=== PATIENT | female | born 1940 | race Caucasian/White ===

== ENCOUNTER 2018-11-11 11:41 | Emergency (ER) | payer MEDICARE, OTHER ==
[~2018-11-11] VITALS: Ht 162.6 cm; Wt 60.8 kg
[2018-11-11] MEDS ORDERED: VITAMIN D31000 UNIT PO (11:56)
[2018-11-11] MEDS ORDERED: SALMON OIL 1,01 EACH PO (11:56)
[2018-11-11] MEDS ORDERED: LUTEIN 15 MG S1 EACH PO (11:56)
[2018-11-11] MEDS ORDERED: VITAMIN C500 M5 PO (11:56)
[2018-11-11] MEDS ORDERED: MULTIVITAMINS1 EAC7 PO (11:57)
[2018-11-11] MEDS ORDERED: CURCUMIN1 GM MISC (11:57)
[2018-11-11] MEDS ORDERED: SUPER B COMPLE1 EACH PO (11:57)
[2018-11-11] MEDS ORDERED: CRANBERRY 6,001 EACH PO (11:58)
[2018-11-11] MEDS ORDERED: COZAAR50 MG PO (11:58)
[2018-11-11] MEDS ORDERED: ECHINACEA HERB380 MG PO (11:58)
[2018-11-11] MEDS ORDERED: ASPIRIN81 MG PO (11:59)
[2018-11-11] MEDS ORDERED: NORVASC5 MG PO (11:59)
[2018-11-11] MEDS ORDERED: PROBIOTIC1 EAC4 PO (11:59)
[2018-11-11] MEDS ORDERED: ALTOPREV40 MG PO (11:59)
--- NOTE | 2018-11-11 13:28 | EKG ---
[facility] [address] [facility] [place], [place] [address] Signed Normal sinus rhythm Right bundle branch block Abnormal ECG No previous ECGs available Confirmed by STEVE BRAMBILA MD ([id number]) on 11/11/2018 1:28:38 PM Electronically Signed By: STEVE BRAMBILA MD 11/11/18 1328 PATIENT NAME: YAIMA SWAIN Electrocardiogram DATE OF : 38 PHYSICIAN: STEVE BRAMBILA MD REPORT #: [id number] REPORT IS CONFIDENTIAL AND NOT TO BE RELEASED WITHOUT AUTHORIZATION
== END 2018-11-11 15:52 | disposition home or self-care (01) ==
LOC: ED 11:41
DX: R07.89 Other chest pain (principal); I10 Essential (primary) hypertension; J45.909 Unspecified asthma, uncomplicated; Z79.82 Long term (current) use of aspirin; Z79.899 Other long term (current) drug therapy
CPT/HCPCS: 71045; 80053; 84484; 85025; 93005; 93010; 99285-25

== ENCOUNTER 2022-06-21 06:00 | Day surgery (SDC) | payer MEDICARE, OTHER ==
[~2022-06-21] VITALS: Ht 162.6 cm; Wt 60.0 kg
[~2022-06-21 06:00] MED LIST: ALTOPREV40 MG PO; ASPIRIN81 MG PO; COZAAR50 MG PO; CRANBERRY 6,001 EACH PO; CURCUMIN1 GM MISC; ECHINACEA HERB380 MG PO; LUTEIN 15 MG S1 EACH PO; MULTIVITAMINS1 EAC8 PO; NORVASC5 MG PO; PROBIOTIC1 EAC4 PO; SALMON OIL 1,01 EACH PO; SUPER B COMPLE1 EACH PO; VITAMIN C500 M5 PO; VITAMIN D31000 UNIT PO
--- NOTE | 2022-06-21 07:53 | NUR ---
VISTED WITH PT PRIOR TO PROCEDURE. PT SHARED THAT HER RIDE WOULD COME BACK WHEN THE PROCEDURE WAS DONE. PT EXPRESSED BEING NERVOUS AND HOPEFUL THAT PROCEDURE WOULD SHOW NOTHING TO WORRY ABOUT. PT WAS TALKATIVE AND THE VISIT WAS LONG. PRAYED WITH PT.
--- NOTE | 2022-06-21 09:51 | NUR ---
06/21/22 0951 Sarah Amaya 0909 PT ARRIVED IN PACU AWAKE WITH NO C/O'S. 15 FLU VACCINE GIVEN IN R ARM PER PT REQUEST. 919 DR AT BEDSIDE. ALL QUESTIONS ANSWERED. 929 SITTING AT SIDE OF BED GETTING DRESSED. 41 DC INSTRUCTIONS GIVEN. LEFT VIA W/C.
--- NOTE | 2022-06-21 12:26 | OR ---
[facility] [address] [place], [place] [address] Signed DATE OF OPERATION: 06/21/2022 SURGEON: Hellen Cheung MD PREOPERATIVE DIAGNOSES: 1. Postmenopausal bleeding. 2. Uterovaginal prolapse. POSTOPERATIVE DIAGNOSES: 1. Postmenopausal bleeding. 2. Uterovaginal prolapse. 3. Cervical stenosis. PROCEDURE: Dilation and curettage. ANESTHESIA: MAC. ESTIMATED BLOOD LOSS: Minimal. DRAINS: None. INDICATIONS AND FINDINGS: The patient is an 82-year-old female, who has had recent abnormal bleeding. Ultrasound showed a slightly thickened endometrium with some fluid. At the time of surgery, her cervix presented at the hymen. Her uterus was small. The cervix was stenotic. No pelvic masses were appreciated. Her cervix could not be dilated beyond the #5 dilator, so D and C with a small curette was done and hysteroscopy was not done. DESCRIPTION OF PROCEDURE: The patient was prepped and draped in the dorsal lithotomy position. A weighted speculum was placed and the anterior lip of the cervix was grasped with a single-tooth tenaculum. The endocervical canal was dilated with some difficulty to a #5 dilator. However, a #6 could not be introduced. Uterus sounded to approximately 6 cm. A small curette was introduced and sharp curettage was done with a small amount of tissue found. There was some tearing of the anterior cervix when the tenaculum was removed and a suture of 0-chromic was placed to repair the rent. All sponge and needle counts were Electronically Signed By: HELLEN CHEUNG MD 06/21/22 1226 PATIENT NAME: YAIMA SWAIN OPERATIVE REPORT DATE OF : 38 REPORT #: [id number] PHYSICIAN: HELLEN CHEUNG MD PCP: ANDREA FIGUEROA MD REPORT IS CONFIDENTIAL AND NOT TO BE RELEASED WITHOUT AUTHORIZATION [facility] [address] [place] [id number] Signed correct. The instruments were removed. The patient was taken to the recovery room in good condition. Hellen Cheung MD PJW/MODL /[id number] cc: Dr. Andrea Figueroa Copies: ~ Electronically Signed By: HELLEN CHEUNG MD 06/21/22 1226 PATIENT NAME: YAIMA SWAIN OPERATIVE REPORT DATE OF : 38 REPORT #: [id number] PHYSICIAN: HELLEN CHEUNG MD PCP: ANDREA FIGUEROA MD REPORT IS CONFIDENTIAL AND NOT TO BE RELEASED WITHOUT AUTHORIZATION
--- NOTE | 2022-06-22 12:47 | EKG ---
[facility] [address] [facility] [place] [address] Signed Normal sinus rhythm Right bundle branch block Left posterior fascicular block Bifascicular block Abnormal ECG When compared with ECG of 11-NOV-2018 11:47, No significant change was found Confirmed by REGGIE ORR MD ([id number]) on 06/22/2022 12:46:53 PM Electronically Signed By: REGGIE ORR MD 06/22/22 1247 PATIENT NAME: YAIMA SWAIN Electrocardiogram DATE OF : 38 PHYSICIAN: REGGIE ORR MD REPORT #: [id number] REPORT IS CONFIDENTIAL AND NOT TO BE RELEASED WITHOUT AUTHORIZATION
--- NOTE | 2022-06-23 15:42 | PATH ---
[facility] [address] [facility] [place], [place] [address] Signed SPECIMEN(S): A ENDOMETRIAL CURETTINGS SPECIMEN SOURCE: A. ENDOMETRIAL CURETTINGS CLINICAL HISTORY: Postmenopausal bleeding FINAL PATHOLOGIC DIAGNOSIS: Endometrial curettings: - Benign atrophic superficial glandular epithelium consistent with lower uterine segment / endometrial epithelium. - Fragments of benign endocervical and ectocervical epithelium. - Negative for atypical features or malignancy. - See comment. COMMENT: The endometrial sampling is scant and may not be financial sales representative of the endometrium. Clinical correlation is requested and if concern persists, additional sampling may be considered. JVR:graham:C2NR MICROSCOPIC EXAMINATION: Histologic sections of all submitted blocks are examined by light microscopy. These findings, together with the gross examination, support the pathologic diagnosis. GROSS DESCRIPTION: The specimen, labeled "Ai Raymond," and designated on the requisition "[facility]," is received in formalin and consists of a 1.7 x 1.5 x 0.3 cm aggregate of red-pink soft tissue. The specimen is entirely submitted in cassette (A1). FB (under the direct supervision of a pathologist) The Gross Description was prepared using a voice recognition system. The report was reviewed for accuracy; however, sound-alike word errors, addition and/or deletions may occur. If there is any question about this report, please contact Client Services. PERFORMING LABORATORY: The technical component was performed by [facility], [address] [place] [id number] (CLIA# [id number]). Professional interpretation was PATIENT NAME: AI RAYMOND PATHOLOGY DATE OF : 38 REPORT #: [id number] PHYSICIAN: JOSIE PATHOLOGY PCP: LEI FIGUEROA MD REPORT IS CONFIDENTIAL AND NOT TO BE RELEASED WITHOUT AUTHORIZATION [address] [place], [place] [address] Signed performed by [facility] [address] [address] (CLIA#: [id number]). Diagnostician: Hubert Lopez MD Pathologist Electronically Signed 06/23/2022 Copies: ~ PATIENT NAME: AI RAYMOND PATHOLOGY DATE OF : 38 REPORT #: [id number] PHYSICIAN: JOSIE PATHOLOGY PCP: LEI FIGUEROA MD REPORT IS CONFIDENTIAL AND NOT TO BE RELEASED WITHOUT AUTHORIZATION
== END 2022-06-21 09:41 | disposition home or self-care (01) ==
LOC: DS 06:00
PROVIDERS: ATTEND Obstetrics & Gynecology
PROC: 0UDB7ZZ Extraction of Endometrium, Via Natural or Artificial Opening (ICD-10-PCS; principal; 2022-06-21 08:35)
DX: N95.0 Postmenopausal bleeding (principal); N81.4 Uterovaginal prolapse, unspecified; N88.2 Stricture and stenosis of cervix uteri; J45.909 Unspecified asthma, uncomplicated; E78.00 Pure hypercholesterolemia, unspecified; M81.0 Age-related osteoporosis without current pathological fracture; I10 Essential (primary) hypertension; Z79.82 Long term (current) use of aspirin; Z88.1 Allergy status to other antibiotic agents; Z23 Encounter for immunization
CPT/HCPCS: 36415; 80053; 85025; 87502; 93005; 93010; J2704; J7121; U0003

== ENCOUNTER 2024-01-03 11:46 | Inpatient (IN) | payer MEDICARE, OTHER ==
[~2024-01-03] VITALS: Ht 162.6 cm; Wt 61.4 kg
--- NOTE | ~2024-01-03 | OR ---
[facility] [address] [place], [place] [address] Draft DATE OF OPERATION: 02/20/2024 SURGEON: Hellen Cheung MD ICE PULLER: David Desai MD PREOPERATIVE DIAGNOSIS: Uterovaginal prolapse. POSTOPERATIVE DIAGNOSIS: Uterovaginal prolapse. PROCEDURES: 1. Total vaginal hysterectomy. 2. Colpocleisis. 3. Cystoscopy, cannulation of the left ureter. ANESTHESIA: Spinal with IV sedation. ESTIMATED BLOOD LOSS: 50 mL. DRAINS: Sousa catheter. PACKS: None. INDICATIONS AND FINDINGS: The patient is an 83-year-old female who has had ongoing issues with uterovaginal prolapse. She failed a pessary trial. She delayed surgery as she was caring for her disabled , but now that he has passed, she is ready to undergo correction. At the time of surgery, the cervix presented within 2 cm of the introitus. The uterus itself was small, though there was a small cervical fibroid on the patient's right. The tubes and ovaries were palpably normal. DESCRIPTION OF PROCEDURE: The patient was prepped and draped in the dorsal lithotomy position. A weighted PATIENT NAME: YAIMA SWAIN OPERATIVE REPORT DATE OF : 38 REPORT #: [id number] PHYSICIAN: HELLEN CHEUNG MD PCP: ROCKY MILLER MD REPORT IS CONFIDENTIAL AND NOT TO BE RELEASED WITHOUT AUTHORIZATION [facility] [address] [place], [place] [address] Draft speculum was placed. The anterior and posterior lips of the cervix were visualized and grasped with a single-tooth tenaculum. The cervix was injected with 10 mL of 1% lidocaine with 1:200;000 epi. The posterior cul-de-sac was then entered sharply. The swan-neck speculum was then placed in the posterior cul-de-sac. The uterosacral ligaments were grasped bilaterally and divided and suture ligated with 0 Vicryl. The vaginal mucosa was then circumferentially incised with the knife. Sharp dissection was used bringing the vaginal mucosa up off of the cervix. At this point, the anterior cul-de-sac was entered. Following this, the remaining pedicles on each side were grasped with curved Z clamps and divided. This was followed by free tie of 0 Vicryl followed by suture ligature of 0 Vicryl on each side. The cuff was examined and there was no evidence of any ongoing bleeding. The peritoneum was identified and the peritoneum was closed with a running suture of 3-0 Vicryl. Following this, the anterior wall of the vagina was grasped in the midline with Allis clamps. This was begun at the bladder neck and down to the cuff. The urethral area was left in place. An incision was made with a knife in the midline and the vaginal mucosa was then undermined bilaterally. This was done as far as possible. The vaginal mucosa was then excised as much as possible. Interrupted sutures of 0 Vicryl were used to plicate what remained of the pubovesical fascia in the midline. Bleeding points were controlled with cautery. Attention was then directed posteriorly. A triangle of tissue was removed from the perineal body and the vaginal mucosa was undermined and incised in the midline to the apex of the vagina. The vaginal mucosa was with a combination of blunt and sharp dissection bilaterally. Care was taken to leave an approximately 1.5 cm area just within the introitus. Following this, bleeding points were controlled with cautery as well as superficial sutures of 2-0 chromic. FloSeal was injected around each of the upper angles near the cuff. Pursestring sutures of 0 Vicryl were used to serially reduce the central defect and bring the anterior and posterior rios together. 2-0 Vicryl was used to then bring the vaginal mucosa together on each side with a running suture of the 2-0 Vicryl. The remaining anterior and posterior vaginal mucosa at the distal part of the vagina was also closed transversely. Before final closure, the vaginal canal was packed with Gel-Foam. The posterior fourchette was then recreated with running suture of 2-0 Vicryl. A crown suture was placed on the perineal body quite high in order to improve the perineal strength. The perineum was closed with subcuticular sutures of 2-0 Vicryl. Inspection of the vault showed good reduction of the vaginal canal. There was a short tunnel on the patient's left. Following this, the cystoscopy was done. The 70-degree scope was used. The patient's right ureter was seen to freely express clear urine. There was no evidence of any other bladder injury. The left ureter, however, after prolonged observation did not have any urine. Because of this, the scope was traded out for the 30-degree scope in the left ureter, was then easily cannulated with a 4 mm whistle-tip. A small amount of clear urine was then seen after removal of the whistle-tip cannula. There was absolutely no resistance on placement. Following this, the cystoscopy was complete and the Sousa catheter replaced. All sponge and needle counts were correct. She tolerated the procedure well and was PATIENT NAME: YAIMA SWAIN OPERATIVE REPORT DATE OF : 38 REPORT #: [id number] PHYSICIAN: HELLEN CHEUNG MD PCP: ROCKY MILLER MD REPORT IS CONFIDENTIAL AND NOT TO BE RELEASED WITHOUT AUTHORIZATION [address] [place] [address] Draft taken to the recovery room in good condition. MD SIMON Fisher/TAMANNA /[id number] Copies: ~ PATIENT NAME: YAIMA SWAIN OPERATIVE REPORT DATE OF : 38 REPORT #: [id number] PHYSICIAN: HELLEN CHEUNG MD PCP: ROCKY MILLER MD REPORT IS CONFIDENTIAL AND NOT TO BE RELEASED WITHOUT AUTHORIZATION
[~2024-01-03 11:46] MED LIST changes: -CRANBERRY 6,001 EACH PO; +CRANBERRY500 M3 PO; -SALMON OIL 1,01 EACH PO; +SV SALMON OIL1 EACH PO
[2024-02-11] MEDS ORDERED: DILTIAZEM ER120 M2 PO (15:27)
[2024-02-11] MEDS ORDERED: HYDROCHLOROTH12.5 M1 PO (15:28)
[2024-02-11] MEDS ORDERED: FLUTICASONE P IH (15:28)
[2024-02-11] MEDS ORDERED: FOSAMAX70 MG PO (15:29)
[2024-02-11] MEDS ORDERED: VENTOLIN HFA18 GM INH (15:29)
[2024-02-11 15:37] VITALS: BP 153/72
[2024-02-19] MEDS ORDERED: AMLODIPINE BESY10 MG PO (16:58)
[2024-02-19] MEDS ORDERED: CITALOPRAM HBR20 MG PO (16:59)
[2024-02-19] MEDS ORDERED: ZINC30 MG PO (17:00)
[2024-02-19] MEDS ORDERED: MONTELUKAST SOD10 MG PO (17:00)
[2024-02-19] MEDS ORDERED: VITAMIN D350 MC3 PO (17:00)
[2024-02-19] MEDS ORDERED: CALCIUM 600-VI1 EA10 PO (17:01)
[2024-02-20] VITALS (9 sets, daily range): BP systolic 120–142; BP diastolic 46–65
[2024-02-20] MEDS ORDERED: LACTATED RINGER'S 1,000 ML IV SCH ×2 (05:00→10:30)
[2024-02-20] MEDS ORDERED: BUPIVACAINE 0.75% IN DEXTROSE 2 ML AMP ONE (06:58)
[2024-02-20] MEDS ORDERED: MORPHINE SULFATE 1 MG/ML VIAL ONE (06:58)
[2024-02-20] MEDS ORDERED: fentaNYL citrate 100 MCG/2 ML VIAL ONE (06:58)
[2024-02-20] MEDS ORDERED: LIDOCAINE 1% W/ EPI 1:100,000 20 ML MDV ONE (06:59)
[2024-02-20] MEDS ORDERED: CEFAZOLIN SODIUM 2 GM/20 ML SYR IV SCH (07:00)
[2024-02-20] MEDS ORDERED: HEParin SOD (PORCINE) 5,000 UNIT/0.5 ML SYR SUB-Q SCH ×2 (07:00→21:00)
[2024-02-20] MEDS ORDERED: LIDOCAINE HCL 1% 5 ML SDV INJ ONE (07:00)
[2024-02-20] MEDS ORDERED: FAMOTIDINE 20 MG/ 2 ML VIAL IV SCH (07:00)
[2024-02-20] MEDS ORDERED: IBLOOD GLUCOSE TEST STRIP 1 EA TEST VI PRN ×2 (07:00→09:30)
[2024-02-20] MEDS ORDERED: propofoL 200 MG/20 ML VIAL ONE ×3 (07:01→09:09)
[2024-02-20] MEDS ORDERED: DEXAMETHASONE SOD PHOS 4 MG/ML VIAL ONE (07:01)
[2024-02-20] MEDS ORDERED: PHENYLEPHRINE HCL 10 MG/ML VIAL ONE (07:06)
[2024-02-20] MEDS ORDERED: LIDOCAINE HCL 2% 5 ML SDV ONE (07:12)
[2024-02-20] MEDS ORDERED: ACETAMINOPHEN 1,000 MG/100 ML VIAL ONE (07:37)
[2024-02-20] MEDS ORDERED: fentaNYL citrate 50 MCG/ML SDV IV PRN (09:30)
[2024-02-20] MEDS ORDERED: ondansetron HCL 4 MG/2 ML VIAL IV PRN ×2 (09:30→10:30)
[2024-02-20] MEDS ORDERED: NALOXONE HCL 0.4 MG SYR IV PRN ×2 (09:30→10:30)
[2024-02-20] MEDS ORDERED: FLUORESCEIN SODIUM 500 MG/5 ML ML ONE (09:42)
[2024-02-20] MEDS ORDERED: MAGNESIUM HYDROXIDE/AL HYDROX 30 ML CUP PO PRN (10:30)
[2024-02-20] MEDS ORDERED: METOCLOPRAMIDE HCL 10 MG/2 ML SDV IV PRN (10:30)
[2024-02-20] MEDS ORDERED: SIMETHICONE 125 MG TABLET CHEWABLE PO PRN (10:30)
[2024-02-20] MEDS ORDERED: FAMOTIDINE 20 MG TAB PO PRN (10:30)
[2024-02-20] MEDS ORDERED: ondansetron HCL 4 MG TAB PO PRN (10:30)
[2024-02-20] MEDS ORDERED: diphenhydrAMINE HCL 50 MG/ML VIAL IV PRN (10:30)
[2024-02-20] MEDS ORDERED: LIDOCAINE 2% VISCOUS 6 ML SYR TOP ONE (10:30)
[2024-02-20] MEDS ORDERED: bisacodyL 10 MG SUPP PR PRN (10:30)
[2024-02-20] MEDS ORDERED: PROCHLORPERAZINE EDISYLATE 10 MG/2 ML VIAL IV PRN (10:30)
--- NOTE | 2024-02-20 10:39 | NUR ---
02/20/24 Naun9 June Mireles 1034-PATIENT ARRIVED TO PACU ON 6L MASK RR EVEN. PATIENT REACTIVE TO VERBAL STIMULI WILL OPENS EYES MOVES HANDS. REMAINS VERY DROWSY. SR. IVF INFUSING. SVETLANA PAD CDI. STEWART CATHETER DRAINING YELLOW URINE. PATIENT DOZES TO SLEEP
[2024-02-20] MEDS ORDERED: ACETAMINOPHEN 500 MG TAB PO SCH (10:45)
[2024-02-20] MEDS ORDERED: MECLIZINE HCL 12.5 MG TAB PO PRN (10:45)
--- NOTE | 2024-02-20 11:43 | NUR ---
PT ARRIVES TO UNIT AT 1130 VIA GURNEY, ESCORTED BY NITHYA Esparza RN. VSS. PT AWAKE AND ALERT. 3L O2 IN PLACE VIA NC. STEWART CATHETER IN PLACE DRAINS CLEAR LIGHT YELLOW URINE. PERIPAD IN PLACE WITH MODERATE SEROSANGUINEOUS DRAINAGE. NO PACKING PRESENT. PT DENIES PAIN OR NAUSEA AT THIS TIME. REPORTS TINGLING IN THE LEFT FINGERS AND IN BILATERAL TOES. GROSS MOTOR MOVEMETN INTACT, STRENGHT TO BUE AND BLE NORMAL AND EQUAL. LUNGS CLEAR, BOWEL TONES ACTIVE X4 QUADRANTS, PT DENIES ABD PAIN OR TENDERNESS. ABDOMEN SOFT AND FLAT. WARM BLANKET PROVIDED. PT ORIENTED TO ROOM AND CALL LIGHT. CALL LIGHT IN REACH. SON HANY, VISITS WITH PT THEN LEAVES ROOM. PT BELONGINGS WITH SONHANY.
--- NOTE | 2024-02-20 12:20 | NUR ---
PT ABLE TO SIT UP ON BEDSIDE AND STAND, PT ABLE TO MAINTAIN STANDING POSITION AND DON BRIEF. PT TOLERATES THIS WELL WITH SBA. PT BACK TO BED, SCDS ON TO BLE.
--- NOTE | 2024-02-20 13:09 | NUR ---
PATIENT IN BED AT THIS TIME. CALL LIGHT WITHIN REACH, NO FURTHER NEEDS AT THIS TIME.
--- NOTE | 2024-02-20 13:27 | NUR ---
PT ATE LUNCH, DENIES NAUSEA, DENIES PAIN. MODERATE AMOUNT OF RED DRAINAGE NOTED IN PERIPAD. NO REQUESTS AT THIS TIME.
--- NOTE | 2024-02-20 13:37 | NUR ---
WENT IN TO TAKE PC VITALS, AND TO EMPTY HER STEWART.PT WANTED A REFILL OF HER WATER AND DIDNT NEED ANYTHING ELSE FROM ME. CALL LIGHT IS WITHIN REACH.
[2024-02-20] MEDS ORDERED: IBUPROFEN 800 MG TAB PO SCH (14:00)
--- NOTE | 2024-02-20 14:38 | NUR ---
VS ASSESSED WNL. PT DENIES NEEDS ATT. GIVEN SCHEDULED MEDS.
--- NOTE | 2024-02-20 15:38 | NUR ---
NO NEW PERIPAD DRAINAGE NOTED AT THIS TIME.
--- NOTE | 2024-02-20 15:45 | NUR ---
UR CLINICAL REVIEW: 2 MN FOR VERSALUS-MEETS CRITERIA FOR INPATIENT STAY MEDICARE INPT 02/20/24 @ 1038 ORDER MATCHES REG NO PA REQUIRED PER MEDICARE GUIDELINES. DISCHARGE TO HOME WHEN STABLE.
--- NOTE | 2024-02-20 19:10 | NUR ---
pt RESTING IN THE BED. BOARD UPDATED. pt DENIES ANY OTHER NEEDS AT THIS TIME CALL LIGHT WITHIN REACH.
[2024-02-20] MEDS ORDERED: dilTIAZem HCL 120 MG CAPCR PO SCH (21:00)
[2024-02-20] MEDS ORDERED: MINERAL OIL/CHONDRUS 30 ML BTL PO SCH (21:00)
[2024-02-20] MEDS ORDERED: SENNOSIDES/DOCUSATE 1 EA TAB PO SCH (21:00)
--- NOTE | 2024-02-20 21:05 | NUR ---
ASSESSMENT AND VITAL SIGNS DONE. NEW SVETLANA PAD AND BREIF ON pt. MODERATE AMMOUNT OF BLOOD ON PAD. pt TITRATED DOWN TO 1LNC. pt SATTING AT 94%. STEWART CATH CARE DONE. SBA FOR LINE TUBE MANAGEMENT. SCHEDULED MEDICATION ADMINISTERED, SEE MAR. SCDS ON. IVF INFUSING PER ORDER, SEE MAR. pt DENIES ANY OTHER NEEDS AT THIS TIME. CALL LIGHT WITHIN REACH.
--- NOTE | 2024-02-21 00:13 | NUR ---
pt RESTING IN THE BED WITH EYES CLOSED. RR EVEN AND UNLABORED. CALL LIGHT WITHIN REACH.
[2024-02-21 01:24] VITALS: BP 113/45
--- NOTE | 2024-02-21 01:30 | NUR ---
ASSESSMENT AND VITAL SIGNS DONE. pt TRIALED ON RA AND DESATTED DOWN TO 86% O2. pt PUT BACK 1L NC. pt NOW SATTING AT 91% ON 1LNC. WATER REFRESHED. pt DENIES ANY OTHER NEEDS AT THIS TIME. CALL LIGHT WITHIN REACH.
--- NOTE | 2024-02-21 04:03 | NUR ---
pt RESTING IN BED. pt REQUESTED PILLOWS UNDER LEGS. pt DENIES ANY OTHER NEEDS AT THIS TIME. CALL LIGHT WITHIN REACH.
[2024-02-21 04:40] VITALS: BP 109/83
--- NOTE | 2024-02-21 05:00 | NUR ---
VITAL SIGNS DONE. pt SVETLANA PAD CHANGED. SCANT AMOUNT OF BLOOD PAD. pt DENIES PAIN AT THIS TIME. NO OTHER NEEDS AT THIS TIME. CALL LIGHT WITHIN REACH.
[2024-02-21 05:32] LABS: HEMATOCRIT 31.7 % (35.0-50.0); HEMOGLOBIN 10.6 g/dL (12.0-18.0); MCHC 33.4 g/dl (30-36); MCV 86.8 fl (81-99); RBC 3.65 M/ul (4.3-5.7)
[2024-02-21 05:45] LABS: ANION GAP 12.7 (7-21); BUN/CREATININE RATIO 20.54 (6.0-28.6); CALCIUM 8.2 mg/dL (8.5-10.1); CREATININE, SERUM 0.73 mg/dL (0.55-1.02); POTASSIUM 3.7 mmol/L (3.5-5.1)
--- NOTE | 2024-02-21 06:50 | NUR ---
pt SL PER MD ORDER. pt UP TO THE BR, SBA. pt DENIES ANY NEED AT THIS TIME. pt HAVING A BM. pt BACK TO BED. CPOX ON. SCDS ON.
--- NOTE | 2024-02-21 07:05 | NUR ---
REPORT RECIEVED FROM MATILDE HIDALGO. PT SEMI-FOWLERS IN BED WITH EYES CLOSED, RR EVEN AND UNLABORED. NO NEEDS IDENTIFIED AT THIS TIME. CALL LIGHT IN REACH.
[2024-02-21] MEDS ORDERED: HYDROCHLOROTH12.5 MG PO (07:59)
[2024-02-21] MEDS ORDERED: CITALOPRAM HBR20 MG PO (08:43)
[2024-02-21] MEDS ORDERED: LOSARTAN POTAS100 MG PO (08:45)
[2024-02-21] MEDS ORDERED: LOVASTATIN40 MG PO (08:46)
[2024-02-21] MEDS ORDERED: FLUTICASONE PRO16 GM NAS (08:47)
[2024-02-21] MEDS ORDERED: AMLODIPINE BESYLATE 10 MG TAB PO SCH (09:00)
[2024-02-21] MEDS ORDERED: LOSARTAN POTASSIUM 100 MG TAB PO SCH (09:00)
--- NOTE | 2024-02-21 09:23 | NUR ---
Received phone call from Dr. Cheung who wanted to confirm that this patient's parada needs to come out if it hasn't already been taken out. Advised charge nurse Palak, who will check with Ijeoma.
--- NOTE | 2024-02-21 09:30 | NUR ---
IN TO ADMINSITER MEDICATIONS, SEE MAR. PT TAKES PO MEDICAITONS WITH NO ISSUES. STEWART REMOVED AT 0935. DR. GARRETT IN ROOM. PT EDUCATED ON POST VOID RESIDUALS. ASSESSMENT COMPLETE. LUNG SOUNDS CLEAR. BOWEL TONES ACTIVE. ABD SOFT, NON-TENDER WITH PALPATION. PT DENIES PAIN AT THIS TIME. PT STATES "JUST A LITTLE CRAMPY FEELING, BUT I THINK IT IS GAS." SMALL AMOUT OF BLOOD NOTED TO SVETLANA-PAD. PEDAL PULSES PALPABLE, STRONG. PT DENIES ANY OTHER NEEDS AT THIS TIME. CALL LIGHT IN REACH. SON IN ROOM.
[2024-02-21 09:36] VITALS: BP 130/50
[2024-02-21] MEDS ORDERED: FLUTICASONE-SA1 EAC3 INH (10:59)
--- NOTE | 2024-02-21 11:00 | NUR ---
MED REC COMPLETE
--- NOTE | 2024-02-21 11:45 | NUR ---
Spoke with Ai. She denies any needs. Completed CM assessment and pt is active and cares for herself. Her son will be staying with her until she sees Dr. Cheung and then she plans on going home with him to [place]. She does not use any DME. Home when cleared medically by Dr. Cheung.
--- NOTE | 2024-02-21 12:40 | NUR ---
IN TO ANSWER CALL LIGHT. PT REPORTING TOILETING NEEDS. SBA FROM BED TO RESTROOM. SMALL AMOUNT OF BLOOD NOTED TO SVETLANA-PAD. NEW SVETLANA-PAD PLACED. VOID NOTED OF 400ML. BLADDERSCAN OF 12ML NOTED. PT IN BED DENIES ANY OTHER NEEDS AT THIS TIME. CALL LIGHT IN REACH.
--- NOTE | 2024-02-21 13:44 | NUR ---
IN TO ADMINISTER MEDICATION, SEE MAR. PT TAKES PO MEDICATION WITH NO ISSUES. ASSESSMENT COMPLETE. PT DENIES PAIN AT THIS TIME. PT REPORTING PASSING FLATUS. SCANT AMOUNT OF BLOOD NOTED TO SVETLANA-PAD. BOWEL TONES ACTIVE. PT REPORTS SOME ABD TENDERNESS WITH PALPATION TO UPPER ABD. PT DENIES ANY OTHER NEEDS AT THIS TIME. CALL LIGHT IN REACH.
--- NOTE | 2024-02-21 13:59 | NUR ---
THIS RN CALLED DR. GARRETT TO UPDATE ON PTs VOIDING TRIAL. DR. GARRETT WOULD LIKE ONE MORE VOID ATTEMPT. NO NEW ORDERS.
[2024-02-21 14:04] VITALS: BP 123/47
--- NOTE | 2024-02-21 14:52 | NUR ---
IN TO ROUND ON PT. PT SITTING UP IN BED AND STATES "I COULD NOT HOLD IT I HAD TO GO, BUT I LEFT IT FOR YOU." VOID OF 600ML NOTED AND BLADDER SCAN OF 49ML NOTED. PT DENIES ANY OTHER NEEDS AT THIS TIME. CALL LIGHT IN REACH. PTs SON IN ROOM. THIS RN ATTEMPTED TO CALL DR. GARRETT TO UPDATE. DR. GARRETT NOT AVAILABLE AT THIS TIME.
--- NOTE | 2024-02-21 16:13 | NUR ---
IN TO ROUND ON PT. PT SITTING UP IN BED AND RESPONDS WHEN ADDRESSED. PT REPORTING PAIN 1/10 IN SVETLANA-AREA, PT STATES "I COUGHED." ASKED PT IF PT HAS ANY TOILETING NEEDS AND PT STATES "I WENT A WHILE AGO, BUT IT WAS MOSTLY NUMBER 2." THIS RN INFORMED PT THAT WE STILL NEED TO MONITOR POST VOID RESIDUAL, SO TO PLEASE CONTINUE CALLING AFTER USING RESTROOM. PT VERBALIZES UNDERSTANDING. PT DENIES ANY OTHER NEEDS AT THIS TIME. CALL LIGHT IN REACH. SON IN ROOM.
--- NOTE | 2024-02-21 16:40 | NUR ---
IN WITH DR. GARRETT. DR. GARRETT AND PT DISCUSS DC. PT AGREEABLE. 1645 IV REMOVED WNL. PT DENIES ANY ASSISTANCE WITH GETTING DRESSED. PT DENIES ANY OTHER NEEDS AT THIS TIME. CALL LIGHT IN REACH.
[2024-02-21] MEDS ORDERED: IBU800 MG PO (16:56)
[2024-02-21] MEDS ORDERED: TYLENOL EXTRA500 MG PO (16:58)
[2024-02-21] MEDS ORDERED: SENNA-S 8.6-501 EACH PO (17:00)
[2024-02-21] MEDS ORDERED: MINERAL OIL PO (17:10)
--- NOTE | 2024-02-21 17:48 | NUR ---
IN TO GO OVER DC PAPERWORK. VERBAL AND WRITTEN INSTRUCTIONS PROVIDED. PT VERBALIZES UNDERSTANDING. QUESTIONS ANSWERED. PTs SON IN ROOM AND VERBALIZES UNDERSTANDING OF DC INSTRUCTIONS. PT BELONGINGS RETURNED. PT DENIES ANY OTHER NEEDS FROM THIS RN.
[2024-02-21 17:57] VITALS: BP 132/50
--- NOTE | 2024-02-25 16:36 | PATH ---
[facility] [address] [place], [place] [address] Signed SPECIMEN(S): A CERVIX AND UTERUS SPECIMEN SOURCE: A. CERVIX AND UTERUS CLINICAL HISTORY: Uterovaginal prolapse. FINAL PATHOLOGIC DIAGNOSIS: Uterus and cervix: - Cervix: Benign squamous atrophy. No dysplasia identified. - Endometrium: Inactive postmenopausal endometrium. No hyperplasia identified. - Myometrium: Multiple benign leiomyomas. [facility] MICROSCOPIC EXAMINATION: Histologic sections of all submitted blocks are examined by light microscopy. These findings, together with the gross examination, support the pathologic diagnosis. GROSS DESCRIPTION: The specimen, labeled and designated "Renetta Raymond, " and designated on the requisition "uterus and cervix," is received in formalin and consists of 28 gram uterus and cervix, which is 2.8 x 2.2 x 7.3 cm (cornu-cornu x anterior-posterior x fundus-ectocervix). The serosal surface is pale pink and smooth with two subserosal nodules that measure 0.3 and 1.0 cm in greatest dimension and one defect that is 2.4 cm involving the lower uterine segment and contains purple suture material. The ectocervical mucosa is pale pink and wrinkled. Serial sectioning of the cervix fails to demonstrate any gross abnormalities. The triangular endometrial cavity is lined by a pink smooth and focally congested endometrium that has an average thickness of 0.1 cm. Sectioning through the uterus reveals a pink moderately trabeculated myometrium with three white-ortiz well-circumscribed intramural nodules that measure up to 1.4 cm in greatest dimension. The subserosal and intramural nodules have a white whorled cut surface. Deicer Tester sections are submitted in three cassettes. Cassette Summary: (A1) cervix PATIENT NAME: YAIMA RAYMOND PATHOLOGY DATE OF : 38 REPORT #: [id number] PHYSICIAN: [facility] PCP: ROCKY MILLER MD REPORT IS CONFIDENTIAL AND NOT TO BE RELEASED WITHOUT AUTHORIZATION [facility] [address] [place], [place] [address] Signed (A2) uterine wall (A3) subserosal and intramural nodules add block FB (under the direct supervision of a pathologist) The Gross Description was prepared using a voice recognition system. The report was reviewed for accuracy; however, sound-alike word errors, addition and/or deletions may occur. If there is any question about this report, please contact Client Services. ADDITIONAL NOTES: Immunohistochemical and/or in situ hybridization studies if performed in this case included appropriate positive controls that reacted as expected. This test was developed and its performance characteristics determined by [facility]. It has not been cleared or approved by the U.S. Food and Drug Administration. The FDA has determined that such clearance or approval is not necessary. This test is used for clinical purposes. It should not be regarded as investigational or for research. [facility] is certified under the Clinical Laboratory Improvement Amendments of 1988 (CLIA) as qualified to perform high complexity clinical laboratory testing. PERFORMING LABORATORY: Technical component was performed by [facility], [address] [place] [id number] (CLIA# [id number]). Professional interpretation was performed by [facility], [address] [place] [id number] (CLIA#: [id number]). Diagnostician: Eulalio Gonzalez MD Pathologist Electronically Signed 02/25/2024 Copies: ~ PATIENT NAME: YAIMA RAYMOND PATHOLOGY DATE OF : 38 REPORT #: [id number] PHYSICIAN: JOSIE ONEAL PCP: ROCKY MILLER MD REPORT IS CONFIDENTIAL AND NOT TO BE RELEASED WITHOUT AUTHORIZATION
== END 2024-02-21 17:59 | disposition home or self-care (01) | DRG 743 ==
LOC: DSVR 02-20 05:30 → MS 02-20 07:30
PROVIDERS: ADMIT Obstetrics & Gynecology; ATTEND Obstetrics & Gynecology
PROC: 0UT97ZZ Resection of Uterus, Via Natural or Artificial Opening (ICD-10-PCS; principal; 2024-02-20 07:30)
PROC: 0ULG7ZZ Occlusion of Vagina, Via Natural or Artificial Opening (ICD-10-PCS; 2024-02-20 07:30)
PROC: 0T978ZZ Drainage of Left Ureter, Via Natural or Artificial Opening Endoscopic (ICD-10-PCS; 2024-02-20 07:30)
DX: N81.4 Uterovaginal prolapse, unspecified (principal); Z88.1 Allergy status to other antibiotic agents; D25.9 Leiomyoma of uterus, unspecified
CPT/HCPCS: 00944; 36415; 80048; 85027; 88305; A9270; J0131; J0690; J1100; J1644; J2001; J2274; J2371; J2704; J3010; J7121